=== PATIENT | female | born 1990 | race Caucasian/White ===

== ENCOUNTER 2025-10-08 09:16 | Outpatient (CLI) | payer BC | END 2025-10-08 09:17 | disposition home or self-care (01) | LOC: CSHCT 09:16 | DX: M43.06 Spondylolysis, lumbar region (principal); M51.369 Other intervertebral disc degeneration, lumbar region without mention of lumbar back pain or lower extremity pain; M51.26 Other intervertebral disc displacement, lumbar region | CPT/HCPCS: 72131 ==